=== PATIENT | male | born 1950 | race Caucasian/White ===

== ENCOUNTER 2017-02-05 06:54 | Outpatient (CLI) | payer MEDICARE, MEDICAID | END 2017-02-05 06:55 | disposition home or self-care (01) | LOC: BICULT 06:54 | PROVIDERS: ATTEND Internal Medicine Gastroenterology | DX: K74.60 Unspecified cirrhosis of liver (principal); K76.89 Other specified diseases of liver; R16.1 Splenomegaly, not elsewhere classified | CPT/HCPCS: 36415; 76705; 80053; 82105; 85025; 85610 ==

== ENCOUNTER 2017-03-25 16:10 | Outpatient (CLI) | payer MEDICARE, MEDICAID ==
--- NOTE | 2017-03-26 08:42 | MRI ---
MRI ABDOMEN WITH AND WITHOUT IV CONTRAST: HISTORY: Cirrhosis of the liver, liver lesion, hemangioma, splenomegaly. FINDINGS: Correlation was made with the CT scans of 08/17/16 and 11/21/08. The liver has an irregular nodular surface consistent with cirrhosis. The hemangioma in the left lob e of the liver best seen on the CT scan of 11/21/08 is barely seen on the current exam. No new enhanc ing liver masses are identified. The spleen is moderately enlarged. A small focus of decreased sign al intensity in the gallbladder is suspicious for a gallstone. Nonocclusive thrombus in the region o f the portal confluence and dilated splenic vein close to the splenic hilum, noted on 08/17/16, are ag ain seen. A tiny amount of free fluid is seen in the abdomen. The pancreas, adrenal glands, and kid neys are unremarkable. No lymphadenopathy is seen. There is no evidence of aneurysmal dilatation of the abdominal aorta. No significant bony abnormalities are noted. IMPRESSION: 1. Liver cirrhosis. 2. Marked splenomegaly. 3. Minimal ascites. 4. Portal hypertension (stable thrombus of the portal confluence). 5. Left liver lobe hemangioma. 6. No new liver mass to suggest hepatocellular carcinoma. POS: [facility]
== END 2017-03-25 16:11 | disposition home or self-care (01) ==
LOC: MRI 16:10
PROVIDERS: ATTEND Internal Medicine Gastroenterology
DX: K76.9 Liver disease, unspecified (principal); K74.60 Unspecified cirrhosis of liver; R16.1 Splenomegaly, not elsewhere classified; R18.8 Other ascites; D18.03 Hemangioma of intra-abdominal structures
CPT/HCPCS: 74183

== ENCOUNTER 2017-06-25 18:26 | Emergency (ER) | payer MEDICARE, MEDICAID ==
[~2017-06-25 18:26] MED LIST: ISOVUE-370 76%-LOCM 1 ML ONE
[2017-06-25 18:56] LABS: #Eosinphils 0.1 thou/uL (0.0-0.7); #Lymphocytes 1.4 thou/uL (1.20-3.40); #Monocytes 0.3 thou/uL (0.11-0.59); #Neutrophils 2.6 thou/uL (1.40-6.50); %Basophils 0.6 % (0.0-1.0); %Eosinophils 1.6 % (0.0-10.0); %Lymphocytes 32.6 % (21.0-51.0); %Monocytes 6.8 % (0.0-10.0); %Neutrophils 58.5 % (42.0-75.0); Mean Corpuscular HGB CONC 33.5 g/dL (32.0-36.0); Mean Corpuscular Volume 89.6 fl (80.0-94.0); Mean Platelet Volume 9.8 fL (7.4-10.4); Platelet Count 39 thou/uL (130-400); RBC Distribution Width 14.4 % (11.5-14.5); Red Blood Cell (RBC) Count 5.65 mill/uL (4.70-6.10); White Blood Cell (WBC) Count 4.4 thou/uL (4.8-10.8)
[2017-06-25 19:19] LABS: ALT (SGPT) 16 U/L (8-55); AST (SGOT) 18 U/L (5-34); Albumin 4.2 g/dL (3.4-4.8); Alkaline Phosphatase 139 U/L (40-150); Anion Gap 13 mmol/L (10-20); BUN (Urea Nitrogen) 8 mg/dL (8.4-25.7); Bilirubin, Total 2.4 mg/dL (0.2-1.2); Calc. Creatinine Clearance 0 mL/min (70-130); Calcium 9.9 mg/dL (7.8-10.44); Carbon Dioxide 24 mmol/L (23-31); Chloride 103 mmol/L (98-107); Estimated GFR-MDRD Greater than 90; Globulin 2.7 g/dL (2.4-3.5); Glucose 87 mg/dL (80-115); Potassium 4.2 mmol/L (3.5-5.1); Protein, Total 6.9 g/dL (5.8-8.1); Sodium 136 mmol/L (136-145)
[2017-06-25 20:25] LABS: INR-International Normal Ratio 1.4; Prothrombin Time 17.7 SEC (12.0-14.7)
[2017-06-25 20:26] LABS: PTT 40.9 SEC (22.9-36.1)
[2017-06-25 20:35] LABS: CK (CPK) 26 U/L (30-200); Lipase 14 U/L (8-78)
[2017-06-25 20:54] LABS: Bilirubin Small (Negative); Blood, Urine Negative (Negative); Clarity CLEAR (Clear); Glucose, Urine (Dipstick) Negative (Negative); Leukocyte Small (Negative); Nitrite Negative (Negative); Protein, Urine (Dipstick) Trace mg/dL (Neg-Trace); Specific Gravity, Urine 1.019 (1.002-1.036); pH, Urine 7.5 (5.0-9.0)
[2017-06-25 20:56] LABS: Bacteria/HPF None Seen HPF (None Seen); Hyaline Casts/LPF 0-3 HYALINE CAST LPF (0-3 Hyaline); Squamous Epithelial None Seen HPF (0-3)
--- NOTE | 2017-06-25 21:19 | CT ---
CT OF ABDOMEN AND PELVIS 06/25/17 COMPARISON: 08/17/16 HISTORY: Cirrhosis, right flank pain. TECHNIQUE: Serial axial CT imaging obtained at 5 mm intervals from the lung bases through the pubic symphysis wi th IV contrast. Coronal reformatted imaging obtained. FINDINGS: Imaged lung bases are unremarkable. There is marked elevation of the left hemidiaphragm, incompletely assessed on this examination. The spleen is not fully imaged on this exam. The spleen is markedly en larged, measuring at least 19 cm in craniocaudal dimension and at least 23 cm in AP dimension. The hepatic parenchyma is heterogeneous and irregular, with a nodular peripheral contour, consistent with cirrhosis. The pancreas, adrenal glands, kidneys and gallbladder are grossly unremarkable. There is scattered diverticula of the descending colon and sigmoid colon with no evidence for diverti culitis. The appendix appears unremarkable. There is small volume free fluid adjacent to the liver and spleen. There is small volume fluid seen w ithin the mesentery. There is scattered atherosclerotic calcification of the abdominal aorta and its branches. No lymphade nopathy identified in the abdomen or pelvis. There are varices in the splenic hilum and the gastrohep atic ligament, evidence of portal hypertension. Review of the osseous structures demonstrate no acute findings. There is a filling defect within the portal vein on image 31, evidence of portal venous clot, slightly less conspicuous than on the examination. IMPRESSION: Evidence of cirrhosis and portal hypertension as described above. There is marked elevation of the le ft hemidiaphragm. POS: [facility]
== END 2017-06-25 22:03 | disposition home or self-care (01) ==
LOC: ERS 18:26
DX: R10.31 Right lower quadrant pain (principal); J44.9 Chronic obstructive pulmonary disease, unspecified; F41.9 Anxiety disorder, unspecified; F20.9 Schizophrenia, unspecified; F32.9 Major depressive disorder, single episode, unspecified; F17.210 Nicotine dependence, cigarettes, uncomplicated
CPT/HCPCS: 36415; 74177; 80053; 81003; 81015; 82550; 83605; 83690; 85025; 85610; 85730; 96360; 96361

== ENCOUNTER 2017-07-31 07:00 | Outpatient (CLI) | payer MEDICARE, MEDICAID | END 2017-07-31 07:01 | disposition home or self-care (01) | LOC: BICMRI 07:00 | PROVIDERS: ATTEND Nurse Practitioner Family | DX: M48.061 Spinal stenosis, lumbar region without neurogenic claudication (principal); M99.83 Other biomechanical lesions of lumbar region | CPT/HCPCS: 72148 ==

== ENCOUNTER 2017-09-26 09:14 | Outpatient (CLI) | payer MEDICARE, MEDICAID ==
--- NOTE | 2017-09-26 13:25 | ULT ---
HEPATIC SONOGRAM WITH DUPLEX EVALUATION: Date: 09/26/17 HISTORY: Cirrhosis. Abdominal pain. FINDINGS: Gallbladder is contracted and contains small echogenic stones. No wall thickening or pericholecystic fluid. Common duct is 0.4 cm. Liver is heterogeneous with a nodular contour and is somewhat small. No focal lesions. Moderate amount of free fluid throughout the abdomen. Spleen is 23.0 cm, without focal abnormality. Good color and spectral Doppler flow are present within the hepatic and splenic arteries. Portal veno us flow is towards the liver. Hepatic venous flow is towards the IVC. IMPRESSION: 1. Cholelithiasis. No evidence of acute biliary obstruction. 2. Cirrhotic appearance of the liver. Findings of portal venous hypertension include moderate ascite s and severe splenomegaly. POS: [facility]
== END 2017-09-26 09:15 | disposition home or self-care (01) ==
LOC: SCSULT 09:14
PROVIDERS: ATTEND Physician Assistant Medical
DX: K74.60 Unspecified cirrhosis of liver (principal); K76.6 Portal hypertension; K31.89 Other diseases of stomach and duodenum; K59.00 Constipation, unspecified; R18.8 Other ascites; R16.1 Splenomegaly, not elsewhere classified; K80.20 Calculus of gallbladder without cholecystitis without obstruction
CPT/HCPCS: 76705

== ENCOUNTER 2017-11-09 10:04 | Emergency (ER) | payer MEDICARE, MEDICAID ==
[2017-11-09] MEDS ORDERED: Adacel (T-DAP) 0.5 ML VIAL ONE (10:33)
[2017-11-09] MEDS ORDERED: Lidocaine 1% (PF) 30 ML VIAL ONE (10:51)
[2017-11-09 11:24] LABS: #Eosinphils 0.1 thou/uL (0.0-0.7); #Lymphocytes 0.8 thou/uL (1.20-3.40); #Monocytes 0.7 thou/uL (0.11-0.59); #Neutrophils 4.9 thou/uL (1.40-6.50); %Basophils 0.4 % (0.0-1.0); %Eosinophils 0.9 % (0.0-10.0); %Lymphocytes 12.3 % (21.0-51.0); %Neutrophils 76.3 % (42.0-75.0); Hemoglobin 13.6 g/dL (14.0-18.0); MDiff Complete? YES; Mean Corpuscular HGB CONC 33.1 g/dL (32.0-36.0); Mean Corpuscular Hemoglobin 30.3 pg (27.0-31.0); Mean Corpuscular Volume 91.5 fL (78.0-98.0); Mean Platelet Volume 8.6 fL (7.4-10.4); PLT Morphology Comment Appears Decreased; Platelet Count 80 thou/uL (130-400); RBC Distribution Width 16.1 % (11.5-14.5); White Blood Cell (WBC) Count 6.5 thou/uL (4.8-10.8)
[2017-11-09 11:31] LABS: Acetaminophen Less than 6.0 mcg/mL (10.0-30.0); Alcohol Less than 10 mg/dL (Less than 10); Salicylate Less than 8.0 mg/dL (15.0-30.0)
[2017-11-09 11:33] LABS: ALT (SGPT) 16 U/L (8-55); AST (SGOT) 30 U/L (5-34); Albumin 3.4 g/dL (3.4-4.8); Alcohol Less than 10 mg/dL (Less than 10); Alkaline Phosphatase 161 U/L (40-150); Anion Gap 18 mmol/L (10-20); BUN (Urea Nitrogen) 34 mg/dL (8.4-25.7); Bilirubin, Total 3.6 mg/dL (0.2-1.2); CK (CPK) 27 U/L (30-200); Calc. Creatinine Clearance 0 mL/min (70-130); Calcium 9.3 mg/dL (7.8-10.44); Carbon Dioxide 22 mmol/L (23-31); Chloride 100 mmol/L (98-107); Estimated GFR-MDRD 37; Globulin 3.1 g/dL (2.4-3.5); Glucose 109 mg/dL (80-115); Potassium 3.7 mmol/L (3.5-5.1); Protein, Total 6.5 g/dL (5.8-8.1); Sodium 136 mmol/L (136-145)
[2017-11-09 11:36] LABS: CKMB 0.7 ng/mL (0-6.6); Troponin I Less than 0.010 ng/mL (< 0.028)
[2017-11-09 12:53] LABS: Bilirubin Moderate (Negative); Blood, Urine Negative (Negative); Clarity CLEAR (Clear); Glucose, Urine (Dipstick) Negative (Negative); Leukocyte Small (Negative); Nitrite Negative (Negative); Protein, Urine (Dipstick) Negative (Neg-Trace)
[2017-11-09 12:56] LABS: Bacteria/HPF None Seen HPF (None Seen); Hyaline Casts/LPF 4-6 HYALINE CAST LPF (0-3 Hyaline); Pathc Cast-AUWi Flag 1.01 (0-2.49); Squamous Epithelial 0-3 HPF (0-3); WBC/HPF 0-3 HPF (0-3)
[2017-11-09] MEDS ORDERED: Haloperidol Lactate 5 MG/ML VIAL ONE ×2 (13:14→14:44)
[2017-11-09 13:17] LABS: Amphetamine Not Detected (NotDetected); Barbiturates Screen Not Detected (NotDetected); Benzodiazepine Screen Not Detected (NotDetected); Cocaine Metabolite Screen Not Detected (NotDetected); Medtox Control Line Valid? VALID (VALID); Medtox Reader # READER 4; Methadone Not Detected (NotDetected); Methamphetamine Not Detected (NotDetected); Opiate Screen Detected (NotDetected); Oxycodone Screen Not Detected (NotDetected); Phencyclidine (PCP) Not Detected (NotDetected); THC/Cannabinoid Screen Not Detected (NotDetected); Tricyclic Screen Detected (NotDetected)
[2017-11-09] MEDS ORDERED: Morphine 4 MG/ML VIAL ONE (15:14)
[2017-11-09] MEDS ORDERED: Ondansetron HCl/PF 4 MG/2 ML Vial ONE (15:22)
[2017-11-09] MEDS ORDERED: traZODone HCl 50 MG TAB ONE (17:42)
[2017-11-09] MEDS ORDERED: Haloperidol 1 MG TAB ONE (23:13)
[2017-11-10] MEDS ORDERED: Morphine 4 MG/ML VIAL ONE ×2 (00:38→11:55)
[2017-11-10] MEDS ORDERED: Haloperidol 1 MG TAB ONE ×2 (03:56→09:36)
--- NOTE | 2017-11-15 13:21 | EKG ---
Test Reason : Blood Pressure : / mmHG Vent. Rate : 097 BPM Atrial Rate : 097 BPM P-R Int : 104 ms QRS Dur : 090 ms QT Int : 368 ms P-R-T Axes : 000 -10 033 degrees QTc Int : 467 ms Sinus rhythm with short CA Abnormal ECG Confirmed by LIZBET HUTCHISON ([id number]), publication editor DAVID WOODSON ([id number]) on 11/15/2017 1:20:55 PM Referred By: Confirmed By:LIZBET HUTCHISON
== END 2017-11-09 12:17 | disposition home or self-care (01) ==
LOC: ERS 10:04 → UNDOADMIN 11-10 10:00 → ERHOLD 11-10 10:00
DX: S51.812A Laceration without foreign body of left forearm, initial encounter (principal); F32.9 Major depressive disorder, single episode, unspecified; K72.90 Hepatic failure, unspecified without coma; J44.9 Chronic obstructive pulmonary disease, unspecified; F17.210 Nicotine dependence, cigarettes, uncomplicated; X78.1XXA Intentional self-harm by knife, initial encounter
CPT/HCPCS: 12004; 36415; 80053; 80306; 80307; 81003; 81015; 82550; 82553; 84443; 84484; 85025; 90471; 90715; 93005; 96361; 96372; 96374; 96375; 96376; G8978-GP-CI; G8979-GP-CI; G8980-GP-CI; J1630; J2001; J2270; J2405

== ENCOUNTER 2017-11-26 09:11 | Day surgery (SDC) | payer MEDICARE, MEDICAID ==
[2017-11-26 09:44] LABS: INR-International Normal Ratio 1.5; PTT 38.4 SEC (22.9-36.1); Prothrombin Time 18.1 SEC (12.0-14.7)
[2017-11-26 12:08] VITALS: BP 123/67; TEMP 98.8
--- NOTE | 2017-11-26 15:39 | ULT ---
ULTRASOUND GUIDED PARACENTESIS 11/26/17 HISTORY: 67-year-old with history of ascites. Informed consent was obtained from the patient and his . The large collection of intraperitoneal fluid was localized using ultrasound guidance. The overlying skin was prepped and draped in the usual sterile manner. A 1% lidocaine solution was used to anesthet ize overlying soft tissues. A small dermatotomy was made. A 5 [place] Yueh needle was placed into the peritoneal cavity. A total of 7 liters of bright yellow peritoneal fluid was removed without difficul ty. IMPRESSION: Successful ultrasound guided paracentesis. POS: [facility]
== END 2017-11-26 13:00 | disposition home or self-care (01) ==
LOC: SPEC 09:11
PROVIDERS: ATTEND Internal Medicine
PROC: 0W9G3ZZ Drainage of Peritoneal Cavity, Percutaneous Approach (ICD-10-PCS; principal; 2017-11-26)
DX: R18.8 Other ascites (principal); Z79.899 Other long term (current) drug therapy; Z88.6 Allergy status to analgesic agent
CPT/HCPCS: 36415; 49083; 85610; 85730

== ENCOUNTER 2017-12-17 09:13 | Day surgery (SDC) | payer MEDICARE, MEDICAID ==
[2017-12-17] MEDS ORDERED: Sodium Bicarbonate 2.5 MEQ/5 ML VIAL ONE (09:43)
[2017-12-17] MEDS ORDERED: Lidocaine 1% PF 5 ML VIAL ONE (09:43)
[2017-12-17 09:58] VITALS: BP 100/55; TEMP 98.1
[2017-12-17 10:09] VITALS: BMI 26.6
[2017-12-17 10:14] LABS: #Lymphocytes 0.8 thou/uL (1.20-3.40); #Monocytes 1.1 thou/uL (0.11-0.59); #Neutrophils 8.9 thou/uL (1.40-6.50); %Basophils 0.2 % (0.0-1.0); %Eosinophils 0.2 % (0.0-10.0); %Lymphocytes 7.1 % (21.0-51.0); %Monocytes 10.1 % (0.0-10.0); %Neutrophils 82.4 % (42.0-75.0); Hemoglobin 11.4 g/dL (14.0-18.0); Mean Corpuscular HGB CONC 32.3 g/dL (32.0-36.0); Mean Corpuscular Hemoglobin 30.4 pg (27.0-31.0); Mean Corpuscular Volume 94.3 fL (78.0-98.0); Mean Platelet Volume 8.2 fL (7.4-10.4); Platelet Count 82 thou/uL (130-400); RBC Distribution Width 15.6 % (11.5-14.5); Red Blood Cell (RBC) Count 3.75 mill/uL (4.70-6.10); White Blood Cell (WBC) Count 10.8 thou/uL (4.8-10.8)
--- NOTE | 2017-12-17 13:01 | ULT ---
ULTRASOUND GUIDED PARACENTESIS: DATE: 12/17/2017. HISTORY: Ascites. FINDINGS: Informed consent was obtained. A large amount of intraperitoneal fluid was located in the peritoneal cavity. The overlying skin was prepped and draped in the usual sterile manner. A 1% Lidocaine solu tion was used to anesthetize the overlying soft tissues. A small dermatotomy was made. A 5 [place] Y ueh needle was placed into the peritoneal cavity using ultrasound guidance. A total of 4500 mL of pe ritoneal fluid was removed without difficulty. IMPRESSION: Successful ultrasound-guided paracentesis. POS: [facility]
== END 2017-12-17 10:50 | disposition hospice, home (50) ==
LOC: ULT 09:13
PROVIDERS: ATTEND Internal Medicine
PROC: 0W9G3ZZ Drainage of Peritoneal Cavity, Percutaneous Approach (ICD-10-PCS; principal; 2017-12-17)
DX: R18.8 Other ascites (principal); Z88.6 Allergy status to analgesic agent; Z79.899 Other long term (current) drug therapy; Z79.891 Long term (current) use of opiate analgesic
CPT/HCPCS: 49083; 85025; J2001